=== PATIENT | female | born 1985 | race Caucasian/White ===

== ENCOUNTER → 2016-03-29 | Outpatient (CLI) | payer OTHER ==
[~2016-03-29] MED LIST: ACET50TA PO; IBUP80TA PO
[2016-03-31 10:42] LABS: F013-IGE PEANUT 1.73 kU/L (Class III); F014-IGE SOYBEAN 0.46 kU/L (Class I); F256-IGE WALNUT 0.44 kU/L (Class I)
== END ==
LOC: M LAB 12:17
PROVIDERS: ATTEND Family Medicine
DX: L50.0 Allergic urticaria (principal)